=== PATIENT | male | born 1955 | race Caucasian/White ===

== ENCOUNTER 2017-11-11 01:36 | Inpatient (IN) | payer BC ==
[2017-11-11] MEDS ORDERED: RX INFO: IV CONTRAST WAS GIVEN 1 EACH MISC MISCELLANE PRN (02:39)
[2017-11-11] MEDS ORDERED: ONDANSETRON 4 MG/2 ML VIAL IVP STA (02:40)
[2017-11-11] MEDS ORDERED: MORPHINE SULFATE 4 MG/ML SYRINGE IVP STA ×2 (02:40→03:57)
[2017-11-11 03:12] LABS: Basophils % (A) 0 %; Eosinophils # (A) 0.1 k/uL (0-0.7); Eosinophils % (A) 0 %; HCT 43.6 % (39.0-53.0); HGB 14.4 gm/dL (13.0-17.5); Lymphocytes # (A) 0.8 k/uL (1.0-4.8); Lymphocytes % (A) 5 %; MCH 29.4 pg (25.0-35.0); Mean Platelet Volume 6.7; Monocytes # (A) 0.8 k/uL (0-1.0); Monocytes % (A) 4 %; Neutrophils # (A) 15.8 k/uL (1.3-7.7); Neutrophils % (A) 90 %; Platelet Count 266 k/uL (150-450); RDW 12.8 % (11.5-15.5); WBC 17.6 k/uL (3.8-10.6)
[2017-11-11 03:20] LABS: ALT 24 U/L (21-72); AST 17 U/L (17-59); Albumin 3.8 g/dL (3.5-5.0); Alkaline Phosphatase 70 U/L (38-126); Anion Gap 10 mmol/L; Blood Urea Nitrogen 18 mg/dL (9-20); Calcium 9.2 mg/dL (8.4-10.2); Carbon Dioxide 24 mmol/L (22-30); Chloride 104 mmol/L (98-107); Glucose 138 mg/dL (74-99); Potassium 4.4 mmol/L (3.5-5.1); Sodium 138 mmol/L (137-145); Total Bilirubin 0.7 mg/dL (0.2-1.3); Total Protein 6.5 g/dL (6.3-8.2)
--- NOTE | 2017-11-11 03:25 | ED ---
General Adult HPI - General Source: patient, RN notes reviewed Mode of arrival: ambulatory Limitations: no limitations <Jesus Barrientos - Last Filed: 11/11/17 03:24> <Johan Abrams - Last Filed: 11/11/17 04:49> - General Chief complaint: GI Bleed Stated complaint: male Time Seen by Provider: 11/11/17 01:45 - History of Present Illness Initial comments: This a 62-year-old male presents emergency Department chief complaint of rectal pain, rectal bleeding. Patient states that he had a large bowel movement morning states he has severe rectal pain and pain around it. It patient states that he he's had some bleeding because of the large bowel movement states it was harder than usual. Patient states that now there appears to be some sort rash she's been using multiple creams that he had at home no relief. He states the bleeding has stopped. He has no abdominal pain denies fever or chills. ( Jesus Barrientos) - Related Data Home Medications Medication Instructions Recorded Confirmed cloNIDine HCL [Catapres] 0.1 mg PO BID 11/11/17 11/11/17 Allergies Allergy/AdvReac Type Severity Reaction Status Date / Time No Known Allergies Allergy Verified 08/06/15 06:24 Review of Systems ROS Other: All systems not noted in ROS Statement are negative. <Jesus Barrientos - Last Filed: 11/11/17 03:24> ROS Other: All systems not noted in ROS Statement are negative. <Johan Abrams - Last Filed: 11/11/17 04:49> ROS Statement: Those systems with pertinent positive or pertinent negative responses have been documented in the HPI. Past Medical History Past Medical History: No Reported History History of Any Multi-Drug Resistant Organisms: None Reported Past Surgical History: No Surgical Hx Reported Past Psychological History: No Psychological Hx Reported Smoking Status: Current every day smoker Past Alcohol Use History: None Reported Past Drug Use History: None Reported <Jesus Barrientos - Last Filed: 11/11/17 03:24> General Exam Limitations: no limitations General appearance: alert, in no apparent distress Head exam: Present: atraumatic, normocephalic, normal inspection Eye exam: Present: normal appearance, PERRL, EOMI. Absent: scleral icterus, conjunctival injection, periorbital swelling Respiratory exam: Present: normal lung sounds bilaterally. Absent: respiratory distress, wheezes, rales, rhonchi, stridor Cardiovascular Exam: Present: regular rate, normal rhythm, normal heart sounds. Absent: systolic murmur, diastolic murmur, rubs, gallop, clicks GI/Abdominal exam: Present: soft, normal bowel sounds. Absent: distended, tenderness, guarding, rebound, rigid Rectal exam: Present: other (There is induration noted on the right buttocks region, there is a linear vesicle type rash that is purplish in nature noted no active bleeding) <Jesus Barrientos - Last Filed: 11/11/17 03:24> Vital Signs 11/11/17 11/11/17 11/11/17 01:38 03:09 04:04 Temperature 97.8 F Pulse Rate 110 H 97 93 Respiratory 20 22 20 Rate Blood Pressure 163/94 157/76 150/70 O2 Sat by Pulse 97 95 96 Oximetry Medical Decision Making - Lab Data Result diagrams: 11/11/17 02:57 <Jesus Barrientos - Last Filed: 11/11/17 03:24> - Lab Data Result diagrams: 11/11/17 02:57 11/11/17 02:57 - Radiology Data Radiology results: report reviewed (CT pelvis positive cellulitis), image reviewed <Johan Abrams - Last Filed: 11/11/17 04:49> - Medical Decision Making 62 male the ER for evaluation of buttocks pain. Right gluteal cellulitis, possible abscess, patient started on IV antibiotics, patient will be admitted for surgical consult (Johan Abrams) - Lab Data Lab Results 11/11/17 11/11/17 Range/Units 02:57 02:57 WBC 17.6 H (3.8-10.6) k/uL RBC 4.90 (4.30-5.90) m/uL Hgb 14.4 (13.0-17.5) gm/dL Hct 43.6 (39.0-53.0) % MCV 89.0 (80.0-100.0) fL MCH 29.4 (25.0-35.0) pg MCHC 33.0 (31.0-37.0) g/dL RDW 12.8 (11.5-15.5) % Plt Count 266 (150-450) k/uL Neutrophils % 90 % Lymphocytes % 5 % Monocytes % 4 % Eosinophils % 0 % Basophils % 0 % Neutrophils # 15.8 H (1.3-7.7) k/uL Lymphocytes # 0.8 L (1.0-4.8) k/uL Monocytes # 0.8 (0-1.0) k/uL Eosinophils # 0.1 (0-0.7) k/uL Basophils # 0.0 (0-0.2) k/uL Sodium 138 (137-145) mmol/L Potassium 4.4 (3.5-5.1) mmol/L Chloride 104 (98-107) mmol/L Carbon Dioxide 24 (22-30) mmol/L Anion Gap 10 mmol/L BUN 18 (9-20) mg/dL Creatinine 0.70 (0.66-1.25) mg/dL Est GFR (MDRD) Af Amer >60 (>60 ml/min/1.73 sqM) Est GFR (MDRD) Non-Af >60 (>60 ml/min/1.73 sqM) Glucose 138 H (74-99) mg/dL Calcium 9.2 (8.4-10.2) mg/dL Total Bilirubin 0.7 (0.2-1.3) mg/dL AST 17 (17-59) U/L ALT 24 (21-72) U/L Alkaline Phosphatase 70 (38-126) U/L Total Protein 6.5 (6.3-8.2) g/dL Albumin 3.8 (3.5-5.0) g/dL Disposition <Jesus Barrientos - Last Filed: 11/11/17 03:24> <Johan Abrams - Last Filed: 11/11/17 04:49> Clinical Impression: Cellulitis, gluteal, right Disposition: ADMITTED IP TO THIS HOSP Condition: Serious Referrals: Slick Wiley MD [Primary Care Provider] - 1-2 days
--- NOTE | 2017-11-11 04:15 | CT ---
EXAM: CT Pelvis With Intravenous Contrast CLINICAL HISTORY: ITS.REASON CT Reason: rectal pain, swelling TECHNIQUE: Axial computed tomography images of the pelvis with intravenous contrast. CTDI is 24.4 mGy and DLP is 1062.1 mGy-cm. This CT exam was performed using one or more of the following dose reduction techniques: automated exposure control, adjustment of the mA and/or kV according to patient size, and/or use of iterative reconstruction technique. COMPARISON: None. FINDINGS: Bowel: Unremarkable. No obstruction. No mucosal thickening. Appendix: Partially imaged appendix. The imaged portion is normal. Intraperitoneal space: Unremarkable. No free air. No significant fluid collection. Bladder: Unremarkable. No evidence of mass. Reproductive: Unremarkable as visualized. Bones/joints: No acute fracture. Soft tissues: Air within the subcutaneous fat of the right inguinal region extending into the right scrotum. Fat stranding in the subcutaneous fat of the right gluteal region extending to the gluteal cleft. Vasculature: Unremarkable. No lower abdominal aortic aneurysm. Lymph nodes: Unremarkable. No enlarged lymph nodes. IMPRESSION: Findings suggestive of right gluteal cellulitis without evidence of drainable fluid collection. Air extending throughout the right inguinal region into the right scrotum. This is nonspecific but may related to recent procedure or possibly infection.
[2017-11-11] MEDS ORDERED: SODIUM CHLORIDE 0.9% 1,000 ML IV STA ×2 (04:40)
[2017-11-11] MEDS ORDERED: PIPERACILLIN-TAZOBACTAM 3.375 GM in DEXTROSE/WATER 1 50ML.BAG IVPB STA (04:40)
[2017-11-11] MEDS ORDERED: VANCOMYCIN IV PER PHARMACY 1 EACH MISC MISCELLANE PRN (04:40)
[2017-11-11] MEDS ORDERED: VANCOMYCIN 2,000 MG in SODIUM CHLORIDE 0.9% 500 ML IVPB ONE (05:00)
[2017-11-11 06:10] VITALS: BMI 38.7
[2017-11-11] MEDS: ENOXAPARIN 40 MG/0.4 ML SYRINGE SQ SCH (08:13)
[2017-11-11] MEDS: MORPHINE SULFATE 4 MG/ML SYRINGE IVP PRN ×3 (08:14→16:44)
--- NOTE | 2017-11-11 11:46 | P.GSHP ---
History of Present Illness H&P Date: 11/11/17 A 62-year-old male looking older than stated age presented to the emergency room to be evaluated for chief complaint of developing rectal pain pressure with episode of rectal bleeding after having a large firm bowel movement. Patient stated that he does not normally have constipation issues. He stated on the morning of the event that he tried to have a bowel movement had a large bowel movement but it was harder than usual. After the bowel movement developed significant rectal pain. Patient stated he felt like he developed a rash around the rectal area. applied some ointment to the area the pain persists decided to come into the emergency room to be evaluated for the above- mentioned symptoms. He states he is obtaining no relief from the rectal pain has not had any further stooling. This been no scrotal edema no difficulty in urinating. No prior episodes. Has no surgical history past medical history hypertension States he isn't everyday current smoker and drinks a couple beers a day. 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 Has a sleep disorder from shiftwork gets up at 2 in the morning works various hours Lives with spouse. Denies any fever chills. On presentation to the emergency room patient does have a right gluteal cellulitis firm area with a linear vesicle rash running alongside the right buttocks. No active bleeding. No odor noted. Significant induration along the right buttocks as noted in the emergency room patient did have a CAT scan of the pelvis with IV contrast in summary the report indicates findings suggestive of right gluteal cellulitis without evidence of a drainable fluid collection. There is air extending through the right inguinal area into the right scrotum. Presentation to the emergency room white count 17.6 with the temp 97.8 heart rate in the 80s - Review of Systems Comment: Essentially unremarkable except as mentioned in the present illness Past Medical History Past Medical History: Hypertension History of Any Multi-Drug Resistant Organisms: None Reported Past Surgical History: Tonsillectomy Additional Past Surgical History / Comment(s): cyst removed from right wrist Past Psychological History: No Psychological Hx Reported Smoking Status: Current every day smoker Past Alcohol Use History: None Reported Past Drug Use History: None Reported - Past Family History Father Family Medical History: Cancer Additional Family Medical History / Comment(s): throat cancer Mother Family Medical History: Dementia, Diabetes Mellitus Medications and Allergies Home Medications Medication Instructions Recorded Confirmed Type Armodafinil [Armodafinil] 250 mg PO DAILY 11/11/17 11/11/17 History cloNIDine HCL [Catapres] 0.2 mg PO BID 11/11/17 11/11/17 History Allergies Allergy/AdvReac Type Severity Reaction Status Date / Time No Known Allergies Allergy Verified 11/11/17 08:32 Surgical - Exam Vital Signs Temp Pulse Resp BP Pulse Ox 97.8 F 110 H 20 163/94 97 11/11/17 01:38 11/11/17 01:38 11/11/17 01:38 11/11/17 01:38 11/11/17 01:38 GENERAL APPEARANCE: 62-year-old male patient is alert, oriented x3 reports having significant rectal and right buttock pain VITAL SIGNS: Reviewed HEENT: Head is normocephalic and atraumatic. Pupils are equal and reactive. The nares are patent. Oropharynx is clear without lesions. NECK: Supple without lymphadenopathy. Traches midline. HEART: S1, S2. Regular rate and rhythm. Denies a murmur denying chest pain LUNGS: No crackles or wheezes are heard. On room air sats are 95% ABDOMEN: Soft, obese nontender, nondistended with good bowel sounds. No peritoneal signs. No palpable organomegaly or masses. EXTREMITIES: Normal skin color and turgor. No cyanosis, rash, ulceration, clubbing or edema. Radial pedal pulses are 2/4 bilaterally. NEUROLOGICAL: No focal deficits. Strength and sensation are grossly intact. Rectal exam small external hemorrhoid noted noted right buttocks induration, also linear vesicle blisters purple with no active bleeding from this with increased tenderness along the right inner buttocks no odor no drainage no scrotal edema Results - Labs 11/11/17 02:57 11/11/17 02:57 Abnormal Lab Results - Last 24 Hours (Table) 11/11/17 11/11/17 Range/Units 02:57 02:57 WBC 17.6 H (3.8-10.6) k/uL Neutrophils # 15.8 H (1.3-7.7) k/uL Lymphocytes # 0.8 L (1.0-4.8) k/uL Glucose 138 H (74-99) mg/dL Diabetes panel 11/11/17 Range/Units 02:57 Sodium 138 (137-145) mmol/L Potassium 4.4 (3.5-5.1) mmol/L Chloride 104 (98-107) mmol/L Carbon Dioxide 24 (22-30) mmol/L BUN 18 (9-20) mg/dL Creatinine 0.70 (0.66-1.25) mg/dL Glucose 138 H (74-99) mg/dL Calcium 9.2 (8.4-10.2) mg/dL AST 17 (17-59) U/L ALT 24 (21-72) U/L Alkaline Phosphatase 70 (38-126) U/L Total Protein 6.5 (6.3-8.2) g/dL Albumin 3.8 (3.5-5.0) g/dL Calcium panel 11/11/17 Range/Units 02:57 Calcium 9.2 (8.4-10.2) mg/dL Albumin 3.8 (3.5-5.0) g/dL Pituitary panel 11/11/17 Range/Units 02:57 Sodium 138 (137-145) mmol/L Potassium 4.4 (3.5-5.1) mmol/L Chloride 104 (98-107) mmol/L Carbon Dioxide 24 (22-30) mmol/L BUN 18 (9-20) mg/dL Creatinine 0.70 (0.66-1.25) mg/dL Glucose 138 H (74-99) mg/dL Calcium 9.2 (8.4-10.2) mg/dL Adrenal panel 11/11/17 Range/Units 02:57 Sodium 138 (137-145) mmol/L Potassium 4.4 (3.5-5.1) mmol/L Chloride 104 (98-107) mmol/L Carbon Dioxide 24 (22-30) mmol/L BUN 18 (9-20) mg/dL Creatinine 0.70 (0.66-1.25) mg/dL Glucose 138 H (74-99) mg/dL Calcium 9.2 (8.4-10.2) mg/dL Total Bilirubin 0.7 (0.2-1.3) mg/dL AST 17 (17-59) U/L ALT 24 (21-72) U/L Alkaline Phosphatase 70 (38-126) U/L Total Protein 6.5 (6.3-8.2) g/dL Albumin 3.8 (3.5-5.0) g/dL Assessment and Plan Assessment: Impression Sudden onset of right buttocks cellulitis with a linear vesicle type rash CAT scan of pelvis report indicates findings suggestive of right gluteal cellulitis without a drainable fluid collection CAT scan abdomen findings per report indicate air extending throughout the right inguinal region into the right scrotum Obesity BMI 38 History of sleep disorder from shift work on [email or web address] Plan Consult infectious disease await recommendations Consult Dr. Márquez medical management IV Zosyn and vancomycin DVT and GI prophylaxis Pain control Further recommendations pending Keep nothing by mouth until surgeon sees patient evaluate with further recommendations Surgical H&P dictated for Dr. madrigal
[2017-11-11] MEDS: PANTOPRAZOLE 40 MG/10 ML VIAL IVP SCH (13:17)
[2017-11-11] MEDS: VANCOMYCIN 2,000 MG in SODIUM CHLORIDE 0.9% 500 ML IVPB SCH ×2 (14:06→22:29)
[2017-11-11] MEDS: PIPERACILLIN-TAZOBACTAM 3.375 GM in DEXTROSE/WATER 1 50ML.BAG IVPB SCH (16:43)
--- NOTE | 2017-11-11 19:31 | CONS ---
CONSULTATION REASON FOR CONSULTATION: Advice regarding hypertension and other multiple medical issues requested by Surgery. HISTORY OF PRESENT ILLNESS: This 62-year-old gentleman with a past history hypertension, history of tonsillectomy, history of nicotine dependence being followed by Dr. Wiley in the outpatient setting is not feeling well over the past several days. The patient had been complaining of rectal pain and rectal bleeding also. The patient had a large bowel movement and also had severe pain and some bleeding was also noted and the patient came to [facility] and was admitted for further evaluation and treatment. A rash around the perianal area was noted and a pelvis CAT scan was also done at the time of admission which showed evidence of significant right gluteal cellulitis without any evidence of any fluid collection extending to the right inguinal region to the right scrotum was also noted. There is no history of any fever, rigors. No history of headache, loss of consciousness, seizures. Surgery is following the patient closely. PAST MEDICAL HISTORY: History of hypertension, history of tonsillectomy, history nicotine dependence. MEDICATIONS PRIOR TO ADMISSION: Include home medications are: 1. Armodafinil 250 mg p.o. daily. 2. Catapres 0.2 b.i.d.. ALLERGIES: None. FAMILY HISTORY: History of throat cancer in the family. SOCIAL HISTORY: History of smoking on a regular basis. History of alcohol intake. REVIEW OF SYSTEMS: ENT: No diminished hearing, diminished vision. CARDIOVASCULAR: No angina, palpitations. RESPIRATORY: As mentioned earlier. GI: No nausea or vomiting. : No dysuria. NERVOUS: No numbness or weakness. ALLERGY/IMMUNOLOGY: No asthma or hay fever. MUSCULOSKELETAL: As mentioned earlier. HEMATOLOGY/ONCOLOGY: No history of anemia. ENDOCRINE: No history of diabetes, hypothyroidism. CONSTITUTIONAL: As mentioned earlier. DERMATOLOGY: Negative. RHEUMATOLOGY: Negative. PSYCHIATRY: As mentioned earlier. PHYSICAL EXAM: Patient is alert, oriented x3. Pulse 90, blood pressure 143/79, respirations 18, temperature 98.9, pulse ox 94% on room air. HEENT: Conjunctivae normal. Oral mucosa moist. NECK: No jugular venous distention. No carotid bruits. No lymph node enlargement. CARDIOVASCULAR: S1, S2 muffled. RESPIRATORY: Breath sounds diminished in the bases. A few scattered rhonchi. No crackles. ABDOMEN: Soft, nontender. No mass palpable. LEGS: No edema. No swelling. PERIANAL AREA: Pustular and blister-like lesions with severe tenderness and erythema noted. NERVOUS SYSTEM: Higher functions as mentioned earlier. Moves all 4 limbs. No focal deficits. LYMPHATIC: No lymphadenopathy in neck or axillae. SKIN: No ulcer, rash or bleeding. LABS: WBC 17. ASSESSMENT: 1. Perianal cellulitis and abscess with possible necrotizing fasciitis, rule out necrotizing fasciitis. 2. Increased WBC. 3. Possible early sepsis. 4. Hypertension. 5. History of nicotine dependence. RECOMMENDATIONS AND DISCUSSION: In this 62-year-old gentleman who presented with multiple complex medical issues, will monitor the patient closely, continue with the current medical management and symptomatic treatment. Will initiate the broad-spectrum IV antibiotics. Otherwise, DVT prophylaxis. Otherwise, incentive spirometry. Resume the home medications, pain medications, proton pump inhibitors. Also recommend surgical evaluation on an expedient nature. Otherwise, once again the prognosis guarded and further recommendations to follow. MMODL / IJN: [id number] /
[2017-11-11] MEDS: cloNIDine HCL 0.2 MG TAB PO SCH (22:29)
[2017-11-11] MEDS: NICOTINE 14MG/24HR PATCH TRANSDERM SCH (22:30)
[2017-11-12] MEDS: PIPERACILLIN-TAZOBACTAM 3.375 GM in DEXTROSE/WATER 1 50ML.BAG IVPB SCH ×2 (02:16→07:25)
--- NOTE | 2017-11-12 05:13 | CONS ---
CONSULTATION DATE OF SERVICE: 11/11/2017. REASON FOR CONSULTATION: Right gluteal abscess and cellulitis. HISTORY OF PRESENT ILLNESS: The patient is a 62-year-old male presenting to the ER early this morning with chief complaints of pain and swelling and redness of the right gluteal area. Apparently the patient usually has constipation. Did have a bowel movement. Subsequently started having rectal pain and some bleeding per rectum. The pain has been mostly around the right gluteal area. The pain described to be sharp almost 10/10, and no radiation. The patient did have some persistent chills but denies any high-grade fever. The patient stated that his headache going on for about 2 days before he has tried to use multiple modalities at home without any relief with worsening pain to the point he was unable to get up and around, almost 10/10. He presented to the ER early this morning. The patient did have a CT of the pelvic area. Bowels were unremarkable. Did show findings suggestive of right gluteal cellulitis without evidence of any drainable collection. The patient has been admitted to the floor. He has been started on broad-spectrum antibiotic with vancomycin and Zosyn. Infectious Disease was consulted for further recommendations regarding antibiotic therapy. The patient has been currently kept n.p.o. for possible anticipation for surgery by the nurse practitioner. REVIEW OF SYSTEMS: Constitutional: Positive for weakness and some chills. No fever has been recorded. HEENT: Eyes no complaint. ENT no complaint. Respiratory no complaint. Cardiovascular no complaint. Genitourinary no complaint. Gastrointestinal: As per HPI. Musculoskeletal: No complaint. Integumentary: No complaint. Psychiatric: No complaint. ENDOCRINE: No complaint. Neurologic no complaint. PAST MEDICAL HISTORY: Hypertension. PAST SURGICAL HISTORY: Tonsillectomy. SOCIAL HISTORY: Current everyday smoker. No drinking or drug use. FAMILY HISTORY: Father history of throat cancer. Mother history of dementia and diabetes mellitus. ALLERGIES: No known drug allergies. MEDICATION: The patient is currently on Catapres, Lovenox, Vancomycin, Protonix, Piptazobactam. EXAMINATION: Blood pressure 143/79 with a pulse of 90, temperature of 98.9. He is 95% on room air. General description is a middle-aged male lying in bed in no distress. No tachypnea or accessory muscle of respiration use. HEENT: Shows no pallor or scleral icterus. Oral mucous membranes dry. No erythema or thrush. Neck: Trachea central. No thyromegaly. Lungs unlabored breathing. Clear to auscultation anteriorly. No wheeze or crackles. Heart S1, S2. Regular rate and rhythm. ABDOMEN: Soft, no tenderness. No guarding or rigidity. Examination of the gluteal area with the RN present does show erythema and induration of the right gluteal area just slightly indurated and tender to touch. Extremities: No edema of the feet. Neurological: The patient is awake, alert, oriented times three. Mood and affect normal. LABS: Hemoglobin is 14.4, white count 17.6, BUN of 18, creatinine 0.79. Liver exam has been normal. Lactic acid was 0.9. DIAGNOSTIC IMPRESSION AND PLAN: Patient with right gluteal cellulitis with question of possible perirectal collection. CT was reviewed with radiologist . There was no evidence of any fluid collection or involvement of the fascia to be suspicious for fasciitis. The likely organism to cover will be the gram-positive sherrell, however in view of the close proximity to the anal area , gram-negative infection not entirely excluded or there was no abnormality on the CT of the bowel. PLAN: 1. The patient is currently covered with broad spectrum antibiotic in the form of vancomycin, pharmacy to dose target of 15 along with Zosyn that will be continued. 2. Aggressive IV fluid. 3. The patient will benefit from surgical aspiration of this area, debridement and deep culture. That should guide further antibiotic therapy. Thank you for this consultation. Will follow this patient along with you. MMODL / IJN: [id number] / MTDD
[2017-11-12] MEDS: VANCOMYCIN 2,000 MG in SODIUM CHLORIDE 0.9% 500 ML IVPB SCH ×2 (05:39→13:46)
[2017-11-12] MEDS: ENOXAPARIN 40 MG/0.4 ML SYRINGE SQ SCH (07:20)
[2017-11-12] MEDS: cloNIDine HCL 0.2 MG TAB PO SCH ×2 (07:24→21:45)
[2017-11-12] MEDS: PANTOPRAZOLE 40 MG/10 ML VIAL IVP SCH (07:25)
[2017-11-12] MEDS ORDERED: MORPHINE SULFATE 4 MG/ML SYRINGE IVP PRN (09:56)
[2017-11-12] MEDS ORDERED: HYDROcodone/APAP 5-325MG 1 EACH TAB PO PRN (09:56)
--- NOTE | 2017-11-12 09:56 | P.PN ---
Subjective Progress Note Date: 11/12/17 62-year-old male seen this morning. Patient reports there is a slight improvement in the discomfort to the right buttocks no drainage. Patients being followed by infectious disease. Afebrile with labs pending. Reports no nausea vomiting no frequent stooling no difficulty in urinating Initial presentation to the emergency room sudden onset of right gluteal cellulitis with rectal pain. CAT scan of the abdomen pelvis with contrast findings suggestive of right gluteal cellulitis without evidence of a drainable fluid collection there is air extending into the right inguinal area. into The right scrotum Objective - Vital Signs Vital signs: Vital Signs Temp 98.6 F 11/12/17 07:00 Pulse 77 11/12/17 07:00 Resp 16 11/12/17 07:00 BP 142/78 11/12/17 07:00 Pulse Ox 94 L 11/12/17 07:00 Intake & Output 11/11/17 11/12/17 11/12/17 18:59 06:59 18:59 Intake Total 480 Balance 480 Intake: Oral 480 Other: # Voids 1 1 - Exam Physical exam 62-year-old male resting comfortably in bed states is a noted improvement with less pain in the right buttock area Lungs adequate air movement bilaterally no shortness of breath Heart S1-S2 audible regular Abdomen soft nondistended nontender bowel tones present no stool no nausea no vomiting Skin there is a noted improvement in the right buttocks cellulitis with a noted improvement in the linear blisters along the right buttocks no scrotal edema Extremities no edema noted - Labs CBC & Chem 7: 11/11/17 02:57 11/11/17 02:57 Labs: Microbiology - Last 24 Hours (Table) 11/11/17 02:57 Blood Culture - Preliminary Blood No Growth after 24 hours Assessment and Plan Assessment: Impression Sudden onset of right buttocks cellulitis with a linear vesicle type rash CAT scan of pelvis report indicates findings suggestive of right gluteal cellulitis without a drainable fluid collection CAT scan abdomen findings per report indicate air extending throughout the right inguinal region into the right scrotum Obesity BMI 38 History of sleep disorder from shift work on [employer] Plan Dr. madrigal reviewed the CAT scan abdomen pelvis at this time he is recommending IV antibiotic therapy no need for an I&D of the abscess we'll monitor and follow with you IV Zosyn and vancomycin per infectious disease DVT and GI prophylaxis Pain control Further recommendations Continue conservative management dictated for Dr. madrigal The above impression and plan of care have been discussed and directed by signing physician. Marlene Montesinos nurse practitioner acting as scribe for signing physician.
[2017-11-12 11:21] LABS: Basophils % (A) 0 %; Eosinophils # (A) 0.1 k/uL (0-0.7); Eosinophils % (A) 0 %; HCT 42.2 % (39.0-53.0); HGB 13.7 gm/dL (13.0-17.5); Lymphocytes # (A) 1.2 k/uL (1.0-4.8); Lymphocytes % (A) 8 %; MCH 30.1 pg (25.0-35.0); MCHC 32.4 g/dL (31.0-37.0); MCV 93.1 fL (80.0-100.0); Mean Platelet Volume 6.9; Monocytes # (A) 0.8 k/uL (0-1.0); Monocytes % (A) 5 %; Neutrophils # (A) 13.8 k/uL (1.3-7.7); Neutrophils % (A) 86 %; Platelet Count 232 k/uL (150-450); RBC 4.54 m/uL (4.30-5.90); WBC 16.1 k/uL (3.8-10.6)
[2017-11-12] MEDS: NUVIGIL 250 MG PO SCH (11:23)
[2017-11-12] MEDS: DOCUSATE 100 MG CAP PO SCH (11:23)
[2017-11-12 11:42] LABS: ALT 24 U/L (21-72); AST 15 U/L (17-59); Albumin 3.5 g/dL (3.5-5.0); Alkaline Phosphatase 68 U/L (38-126); Anion Gap 9 mmol/L; Blood Urea Nitrogen 20 mg/dL (9-20); Calcium 8.9 mg/dL (8.4-10.2); Carbon Dioxide 26 mmol/L (22-30); Chloride 106 mmol/L (98-107); Glucose 103 mg/dL (74-99); Sodium 141 mmol/L (137-145); Total Bilirubin 0.9 mg/dL (0.2-1.3); Total Protein 6.3 g/dL (6.3-8.2)
[2017-11-12] MEDS ORDERED: VANCOMYCIN TROUGH DUE 1 EACH MISC MISCELLANE ONE (12:00)
[2017-11-12] MEDS ORDERED: VANCOMYCIN 1,750 MG in SODIUM CHLORIDE 0.9% 250 ML IVPB SCH (13:00)
--- NOTE | 2017-11-12 16:47 | PN ---
PROGRESS NOTE DATE OF SERVICE: 11/12/2017 REASON FOR FOLLOWUP: Right gluteal cellulitis. INTERVAL HISTORY: The patient is afebrile. Overall he is feeling much better. Pain to the right gluteal area has much improved. There is no drainage. Denies having any chest pain, shortness of breath or cough. No abdominal pain or diarrhea. PHYSICAL EXAMINATION: Blood pressure 142/78 with a pulse of 77, temperature 98.6. He is 94% on room air. General description is a middle-aged male lying in bed in no distress. RESPIRATORY SYSTEM: Unlabored breathing. Clear to auscultation anteriorly. HEART: S1, S2. Regular rate and rhythm. ABDOMEN: Soft. No tenderness. EXAMINATION OF THE RIGHT GLUTEAL AREA: Overall swelling and redness much improved. No significant induration. No drainage was noticed. LABS: Hemoglobin 13.7, white count 16.1 with a BUN of 20, creatinine 0.83. Blood culture negative so far. DIAGNOSTIC IMPRESSION AND PLAN: Patient with right gluteal cellulitis with no evidence of any drainable abscess with very remarkable improvement within 24 hours. As the patient has not been exposed to any antibiotic in the recent past, this could be a sensitive pathogen; hence antibiotic will be adjusted to Unasyn 3 grams q.6, and if the patient continues to improve, he will finish therapy with oral antibiotic. All their questions and concerns were answered. MMODL / IJN: [id number] /
[2017-11-12] MEDS: AMPICILLIN-SULBACTAM 3 GM in SODIUM CHLORIDE 0.9% 100 ML IVPB SCH ×2 (17:16→23:23)
[2017-11-12] MEDS: NICOTINE 14MG/24HR PATCH TRANSDERM SCH ×2 (17:16→21:43)
--- NOTE | 2017-11-12 21:06 | P.PN ---
Subjective Progress Note Date: 11/12/17 Progress note being dictated for Dr. Márquez. Interval history: This is 62-year-old gentleman admitted with right gluteal cellulitis. Evaluated by surgery with no surgical intervention, no I&D recommended at this time. Maintained on IV antibiotics, sitz baths with significant clinical improvement. T-max 101, pulmonary blood cultures negative. Denies chest pain, palpitations or increasing shortness of breath. Objective - Vital Signs Vital signs: Vital Signs Temp 100.3 F H 11/12/17 16:19 Pulse 76 11/12/17 15:00 Resp 18 11/12/17 15:00 BP 146/83 11/12/17 15:00 Pulse Ox 96 11/12/17 15:00 Intake & Output 11/11/17 11/12/17 11/12/17 18:59 06:59 18:59 Intake Total 480 400 Balance 480 400 Intake: Oral 480 400 Other: # Voids 1 1 3 # Bowel Movements 0 - Exam PHYSICAL EXAM: VITAL SIGNS: [As above] GENERAL: Sitting up in bed, no acute distress HEENT: Conjunctivae normal. eyes normal. Oral mucosa moist NECK: No JVD. No thyroid enlargement. No LNs CARDIOVASCULAR: S1, S2 muffled. No murmur RESPIRATION: Breath sounds diminished in the bases. No rhonchi or crackles. ABDOMEN: Soft, nontender . No guarding. no masses palpable. Bowel sounds heard. LEGS: No edema. no swelling PSYCHIATRY: Alert and oriented -3, mood and affect normal. NERVOUS SYSTEM: Cranial N 2-12 grossly normal. Moves all 4 limbs. Diffuse weakness No focal deficits. Skin: Right gluteal area redness and swelling significantly improved with no drainage Joints: No active swelling. No inflammation. Microbiology 11/11/17 02:57 Blood Blood Culture - Preliminary No Growth after 24 hours - Labs CBC & Chem 7: 11/12/17 11:03 11/12/17 11:03 Labs: Abnormal Lab Results - Last 24 Hours (Table) 11/12/17 11/12/17 Range/Units 11:03 11:03 WBC 16.1 H (3.8-10.6) k/uL Neutrophils # 13.8 H (1.3-7.7) k/uL Glucose 103 H (74-99) mg/dL AST 15 L (17-59) U/L Microbiology - Last 24 Hours (Table) 11/11/17 02:57 Blood Culture - Preliminary Blood No Growth after 24 hours Assessment and Plan Assessment: 1. Right gluteal, perianal cellulitis with possible necrotizing fasciitis; currently without evidence of drainable abscess per surgery 2. Leukocytosis 3. Possible early sepsis 4.. Hypertension 5. History of nicotine dependence Plan: Continue on current medication regime ,monitoring and symptomatic treatment. Aggressive pulmonary toileting. Antibiotics as per infectious disease. Patient had been afebrile telemetry this afternoon and now beginning to spike fevers again, follow closely with pulmonary and surgery. Further recommendations to follow. The impression and plan of care has been dictated as directed. : I performed a history and examination of this patient, discussed the same with the dictator. I agree with the dictator's note ,documented as a scribe. Any additional findings or plans will be noted.
[2017-11-12 23:05] VITALS: RESP 16
[2017-11-13] MEDS: AMPICILLIN-SULBACTAM 3 GM in SODIUM CHLORIDE 0.9% 100 ML IVPB SCH ×4 (05:52→23:55)
[2017-11-13] MEDS: PANTOPRAZOLE 40 MG TABLET PO SCH (07:56)
[2017-11-13] MEDS: NUVIGIL 250 MG PO SCH (07:56)
[2017-11-13] MEDS: ENOXAPARIN 40 MG/0.4 ML SYRINGE SQ SCH (07:56)
[2017-11-13] MEDS: DOCUSATE 100 MG CAP PO SCH (07:56)
[2017-11-13] MEDS: cloNIDine HCL 0.2 MG TAB PO SCH ×2 (07:56→20:07)
[2017-11-13 09:04] LABS: Basophils % (A) 0 %; Eosinophils # (A) 0.1 k/uL (0-0.7); Eosinophils % (A) 1 %; HCT 42.3 % (39.0-53.0); HGB 13.1 gm/dL (13.0-17.5); Lymphocytes # (A) 1.2 k/uL (1.0-4.8); Lymphocytes % (A) 9 %; MCH 29.4 pg (25.0-35.0); MCHC 30.9 g/dL (31.0-37.0); MCV 95.1 fL (80.0-100.0); Mean Platelet Volume 6.5; Monocytes # (A) 0.6 k/uL (0-1.0); Monocytes % (A) 5 %; Neutrophils % (A) 85 %; Platelet Count 224 k/uL (150-450); RBC 4.45 m/uL (4.30-5.90)
[2017-11-13 09:15] LABS: ALT 24 U/L (21-72); AST 19 U/L (17-59); Albumin 3.3 g/dL (3.5-5.0); Alkaline Phosphatase 67 U/L (38-126); Anion Gap 10 mmol/L; Blood Urea Nitrogen 20 mg/dL (9-20); Calcium 8.7 mg/dL (8.4-10.2); Carbon Dioxide 26 mmol/L (22-30); Chloride 107 mmol/L (98-107); Glucose 164 mg/dL (74-99); Potassium 4.2 mmol/L (3.5-5.1); Sodium 143 mmol/L (137-145); Total Bilirubin 0.6 mg/dL (0.2-1.3)
[2017-11-13] MEDS ORDERED: RX INFO: IV CONTRAST WAS GIVEN 1 EACH MISC MISCELLANE PRN (13:31)
--- NOTE | 2017-11-13 13:48 | P.PN ---
Subjective Progress Note Date: 11/13/17 62-year-old male seen and examined the bedside patient states continues to have discomfort in the rectal area white count 13 this morning with a temp of 99.7. Patient is being followed by infectious disease. Blood cultures to date have been negative. There is no significant improvement to the right gluteal cellulitis blister formation increased weeping whitish creamy drainage from the blisters Initial presentation to the emergency room sudden onset of right gluteal cellulitis with rectal pain. CAT scan of the abdomen pelvis with contrast findings suggestive of right gluteal cellulitis without evidence of a drainable fluid collection there is air extending into the right inguinal area. into The right scrotum Objective - Vital Signs Vital signs: Vital Signs Temp 99.7 F H 11/13/17 07:00 Pulse 65 11/13/17 07:00 Resp 16 11/13/17 07:00 BP 124/78 11/13/17 07:00 Pulse Ox 94 L 11/13/17 07:00 Intake & Output 11/12/17 11/13/17 11/13/17 18:59 06:59 18:59 Intake Total 400 600 Balance 400 600 Intake: Intake, IV Titration 200 Amount Ampicillin-Sulbactam 3 gm 200 In Sodium Chloride 0.9% 100 ml @ 100 mls/hr IVPB Q6HR [facility] Rx#:[id number] Oral 400 400 Other: # Voids 3 2 # Bowel Movements 0 - Exam Physical exam 62-year-old male resting comfortably in bed states is a noted improvement with less pain in the right buttock area Lungs adequate air movement bilaterally no shortness of breath Heart S1-S2 audible regular Abdomen soft nondistended nontender bowel tones present no stool no nausea no vomiting Skin increased tenderness in the right buttocks cellulitis with a noted increase in the linear blisters along the right buttocks no scrotal edema does report having scrotal pain the blisters are draining whitish cream colored secretions area moist no odor noted Extremities no edema noted - Labs CBC & Chem 7: 11/13/17 08:30 11/13/17 08:30 Labs: Abnormal Lab Results - Last 24 Hours (Table) 11/13/17 11/13/17 Range/Units 08:30 08:30 WBC 13.0 H (3.8-10.6) k/uL MCHC 30.9 L (31.0-37.0) g/dL Neutrophils # 11.0 H (1.3-7.7) k/uL Glucose 164 H (74-99) mg/dL Total Protein 6.0 L (6.3-8.2) g/dL Albumin 3.3 L (3.5-5.0) g/dL Microbiology - Last 24 Hours (Table) 11/11/17 02:57 Blood Culture - Preliminary Blood No Growth after 48 hours Assessment and Plan Assessment: Impression Sudden onset of right buttocks cellulitis with a linear vesicle type rash CAT scan of pelvis report indicates findings suggestive of right gluteal cellulitis without a drainable fluid collection CAT scan abdomen findings per report indicate air extending throughout the right inguinal region into the right scrotum Obesity BMI 38 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 madrigal will reviewed the CAT scan abdomen pelvis with further recommendations IV Zosyn and vancomycin per infectious disease DVT and GI prophylaxis Pain control Will follow with you Shower daily dictated for Dr. madrigal The above impression and plan of care have been discussed and directed by signing physician. Marlene Montesinos nurse practitioner acting as scribe for signing physician.
[2017-11-13] MEDS: IOHEXOL 350 MG/ML 25 ML BOTTLE (ORAL USE) PO PRN ×2 (14:18→15:28)
--- NOTE | 2017-11-13 15:29 | PN ---
PROGRESS NOTE DATE OF SERVICE: 11/13/2017 INTERIM HISTORY: 62-year-old gentleman who was admitted with perirectal abscess possibly is being closely monitored. Patient also has fever. Surgery is following the patient as well as Infectious Disease. The possibility of also to be considered because of the presence of air in the CT scan. PHYSICAL EXAM: Patient is alert, oriented x3. Pulse 65, blood pressure 124/78, respirations 16 , temperature 99.7, T-max 100.2, pulse ox 94% on room air. HEENT: Conjunctivae normal. NECK: No jugular venous distention. CARDIOVASCULAR: S1, S2 muffled. RESPIRATORY: Breath sounds diminished in the bases. A few scattered rhonchi. No crackles. ABDOMEN: Soft, nontender. No mass. LEGS: No edema, no swelling. NERVOUS SYSTEM: No focal deficits. Examination of the perianal area, some swelling and some blister-like lesions also present. LABS: WBC 13 and albumin is 3. ASSESSMENT: 1. Right gluteal perianal cellulitis with possible abscess versus necrotizing fasciitis. 2. Superficial blisters. 3. Leukocytosis possibly early sepsis present on admission. 4. Hypertension. 5. History of nicotine dependence. RECOMMENDATIONS AND DISCUSSION: I recommend to continue current management and symptomatic treatment. Closely follow surgery. Otherwise repeat CT scan. Closely follow with Infectious Disease. Broad - spectrum IV antibiotics. Prognosis guarded because of multiple complex medical issues. Discussed with Surgery. Further recommendations to follow. Further recommendations including any intervention per Surgery. MMODL / IJN: [id number] / MTDD
--- NOTE | 2017-11-13 16:15 | PN ---
PROGRESS NOTE DATE OF SERVICE: 11/13/2017. REASON FOR FOLLOWUP: Right gluteal cellulitis. INTERVAL HISTORY: The patient did spike a fever yesterday afternoon of 101. Afebrile this morning, not this fever. The patient denies any chest pain or shortness of breath or cough. No abdominal pain. The patient's right gluteal has much improved. No diarrhea. EXAMINATION: Blood pressure 137/79 with a pulse of 59, temperature 97.8. He is 94% on room air. General description is a middle-aged male lying in bed in no distress. RESPIRATORY SYSTEM: Unlabored breathing. Clear to auscultation anteriorly. HEART: S1, S2. Regular rate. ABDOMEN: Soft, no tenderness. Right gluteal area swelling and redness have improved. No induration was noticed or any drainage. LABS: White count of 13 with a BUN of 20, creatinine 0.79. DIAGNOSTIC IMPRESSION AND PLAN: Patient with right gluteal cellulitis, now with new fever. Repeat CT will be ordered to make sure there is no formation of any abscess that may need to be drained further. Keep the patient on Unasyn. If the CT was negative for any abscess collection and remains to be afebrile, recommend finish therapy with oral antibiotics. Continue supportive care. MMODL / IJN: [id number] /
--- NOTE | 2017-11-13 16:54 | CT ---
EXAMINATION TYPE: CT abdomen pelvis w con DATE OF EXAM: 11/13/2017 COMPARISON: CT pelvis 11/11/2017 HISTORY: Anal abscess. CT DLP: [id number] mGycm Automated exposure control for dose reduction was used. TECHNIQUE: Helical acquisition of images from the lung bases through the pelvis have been completed. CONTRAST: Performed with Oral Contrast and with IV Contrast, patient injected with 100ml mL of Omnipaque 300. FINDINGS: There is a small hiatal hernia. LUNG BASES: Minimal dependent atelectatic changes are present. AORTA: No significant abnormality is appreciated. LIVER/GB: No significant abnormality is appreciated. PANCREAS: No significant abnormality is seen. SPLEEN: No significant abnormality is seen. ADRENALS: No significant abnormality is seen. KIDNEYS: Punctate nonobstructive calculus present at the lower pole of the left kidney. REPRODUCTIVE ORGANS: No significant abnormality is seen BOWEL: No significant abnormality is seen. FREE AIR: No Free Air visible. ASCITES: None visible. PELVIC ADENOPATHY: None visualized. RETROPERITONEAL ADENOPATHY: No Retroperitoneal Adenopathy visible. URINARY BLADDER: Contracted, wall thickening could be due to cystitis or lack of distention, correla te. OSSEOUS STRUCTURES: No significant abnormality is seen. Small right femoral hernia present. Inflammatory changes noted along the medial aspect of the right upper extremity which may represent l ocal phlegmon, the area may be incompletely evaluated. IMPRESSION: INFLAMMATORY CHANGES DESCRIBED, CORRELATE CLINICALLY. HERNIA. NONOBSTRUCTIVE LEFT NEPHROLITHIASIS. ADDITIONAL FINDINGS ABOVE.
[2017-11-13] MEDS: NICOTINE 14MG/24HR PATCH TRANSDERM SCH (17:27)
[2017-11-13 22:55] VITALS: PULSE 66
[2017-11-14] MEDS: AMPICILLIN-SULBACTAM 3 GM in SODIUM CHLORIDE 0.9% 100 ML IVPB SCH ×2 (05:26→12:24)
[2017-11-14 07:29] VITALS: BP 138/92; TEMP 98.7
[2017-11-14] MEDS: cloNIDine HCL 0.2 MG TAB PO SCH (07:47)
[2017-11-14] MEDS: NUVIGIL 250 MG PO SCH (07:47)
[2017-11-14] MEDS: ENOXAPARIN 40 MG/0.4 ML SYRINGE SQ SCH (07:47)
[2017-11-14] MEDS: DOCUSATE 100 MG CAP PO SCH (07:47)
[2017-11-14] MEDS: PANTOPRAZOLE 40 MG TABLET PO SCH (07:47)
[2017-11-14 07:58] LABS: Basophils % (A) 0 %; Eosinophils # (A) 0.1 k/uL (0-0.7); Eosinophils % (A) 2 %; HCT 41.9 % (39.0-53.0); HGB 13.3 gm/dL (13.0-17.5); Lymphocytes # (A) 1.3 k/uL (1.0-4.8); Lymphocytes % (A) 14 %; MCH 29.1 pg (25.0-35.0); MCHC 31.8 g/dL (31.0-37.0); MCV 91.6 fL (80.0-100.0); Mean Platelet Volume 6.4; Monocytes # (A) 0.7 k/uL (0-1.0); Monocytes % (A) 7 %; Neutrophils # (A) 6.8 k/uL (1.3-7.7); Neutrophils % (A) 75 %; Platelet Count 261 k/uL (150-450); RBC 4.57 m/uL (4.30-5.90); RDW 12.6 % (11.5-15.5); WBC 9.1 k/uL (3.8-10.6)
[2017-11-14 08:18] LABS: ALT 33 U/L (21-72); AST 24 U/L (17-59); Albumin 3.4 g/dL (3.5-5.0); Alkaline Phosphatase 66 U/L (38-126); Anion Gap 10 mmol/L; Blood Urea Nitrogen 21 mg/dL (9-20); Calcium 9.1 mg/dL (8.4-10.2); Carbon Dioxide 27 mmol/L (22-30); Chloride 106 mmol/L (98-107); Glucose 112 mg/dL (74-99); Potassium 3.9 mmol/L (3.5-5.1); Sodium 143 mmol/L (137-145); Total Bilirubin 0.7 mg/dL (0.2-1.3); Total Protein 6.1 g/dL (6.3-8.2)
--- NOTE | 2017-11-14 12:28 | P.DS ---
Providers Date of admission: 11/11/17 04:48 Expected date of discharge: 11/14/17 Attending physician: Kendell Salguero Consults: 11/11/17 10:23 Consult Physician Urgent Consulting Provider: Matthew Kelly Consult Reason/Comments: med mtg Do you want consulting provider notified?: Yes 11/11/17 10:25 Consult Physician Urgent Consulting Provider: Leticia Rouse Consult Reason/Comments: id mtg Do you want consulting provider notified?: Yes Primary care physician: Slick Wiley - Discharge Diagnosis(es) (1) Cellulitis, gluteal, right Patient admitted to the surgical service because of a draining cellulitis right buttock. Patient had leukocytosis and significant pain initially. His white blood cell count is normal at this time. Pain has resolved as well. No surgical drainage was required. Still with spontaneous drainage from the superficial ulcerations. Seen by infectious disease during his hospital stay. They are prescribing outpatient antibiotics. He will follow-up with Dr. Salguero later this week. Current Visit: Yes Status: Acute Patient Condition at Discharge: Serious Plan - Discharge Summary Discharge Rx Participant: Yes New Discharge Prescriptions: No Action cloNIDine HCL [Catapres] 0.2 mg PO BID Armodafinil [Armodafinil] 250 mg PO DAILY Discharge Medication List Armodafinil [Armodafinil] 250 mg PO DAILY 11/11/17 [History] cloNIDine HCL [Catapres] 0.2 mg PO BID 11/11/17 [History] Follow up Appointment(s)/Referral(s): Slick Wiley MD [Primary Care Provider] - 1 Week Patient Instructions/Handouts: Cellulitis (DC) Activity/Diet/Wound Care/Special Instructions: No smoking, cessation information provided. Activity as tolerated. Cardiac diet (low salt, low fat).
== END 2017-11-14 14:10 | disposition home or self-care (01) | DRG 603 ==
LOC: EC 01:36 → 4MS4W 04:48
PROVIDERS: ADMIT Surgery; ATTEND Surgery
DX: L03.317 Cellulitis of buttock (principal); E66.9 Obesity, unspecified; Z68.38 Body mass index [BMI] 38.0-38.9, adult; G47.9 Sleep disorder, unspecified; I10 Essential (primary) hypertension; F17.200 Nicotine dependence, unspecified, uncomplicated; K59.00 Constipation, unspecified; Z79.899 Other long term (current) drug therapy
CPT/HCPCS: 36415; 72193; 74177; 80053; 80202; 83605; 85025; 87040; 96365; 96368; 96375; 96376; 99284